=== PATIENT | male | born 2000 | race Caucasian/White ===

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

== ENCOUNTER 2019-02-17 16:11 | Emergency (ER) | payer BC | END 2019-02-17 16:25 | disposition left against medical advice (07) | LOC: D.ER 16:11 | DX: R11.10 Vomiting, unspecified (principal) ==